=== PATIENT | female | born 1995 | race Caucasian/White ===

== ENCOUNTER → 2016-06-22 | Outpatient (CLI) | payer BC ==
[2016-06-22 12:36] LABS: CH 30.6; CHCM 34.5; HCT 37.2 % (34.0-46.0); HDW 2.67; HGB 12.7 gm/dL (11.4-16.0); MCH 30.4 pg (25.0-35.0); MCHC 34.1 g/dL (31.0-37.0); MCV 89.2 fL (80.0-100.0); Mean Platelet Volume 7.2; RBC 4.17 m/uL (3.80-5.40); RDW 12.2 % (11.5-15.5); WBC 8.8 k/uL (3.8-10.6)
[2016-06-22 12:50] LABS: Glucose 87 mg/dL (74-99); Non-African American GFR(MDRD) >60 (>60 ml/min/1.73 sqM)
[2016-06-22 13:21] LABS: Hepatitis B Surface Ag Index 0.07
[2016-06-23 04:47] LABS: Toxoplasma Antibody (IgG) <3.0 IU/mL (<7.2)
[2016-06-24 07:24] LABS: HIV-1/HIV-2 Ab Screen NONREAC (NON REAC)
== END | disposition home or self-care (01) ==
LOC: LABWHC1 12:03
PROVIDERS: ATTEND Obstetrics & Gynecology
DX: Z34.81 Encounter for supervision of other normal pregnancy, first trimester (principal); Z3A.00 Weeks of gestation of pregnancy not specified
CPT/HCPCS: 36415; 82565; 82947; 85027; 86762; 86777; 86778; 86780; 86850; 86900; 86901; 87340; 87389

== ENCOUNTER → 2016-06-30 | Outpatient (CLI) | payer BC ==
--- NOTE | 2016-06-30 10:22 | US ---
EXAMINATION TYPE: US OB <= 14 wk fetus DATE OF EXAM: 06/30/2016 9:59 AM COMPARISON: NONE CLINICAL HISTORY: Z36 CONFIRM DATES. Confirm dates, pt has no complaints at this time EXAM PERFORMED: Transabdominal (TA) EXAM MEASUREMENTS: GESTATIONAL AGE / DATING Physician Established: (9 weeks/4 days) EDC: 01/29/2017 Dates by LMP: (9 weeks/4 days) EDC: 01/29/2017 Dates by First Scan: No prior Dates by Current Scan for: (9 weeks/6 days) EDC: 01/27/2017 MATERNAL ANATOMY Uterus: 10.9 x 5.3 x 6.5 cm Right Ovary: 2.8 x 1.8 x 2.1 cm Left Ovary: 3.3 x 2.3 x 3.3 cm Post CDS / Adnexa: wnl Presence of free fluid: No Presence of corpus luteal cyst: Left Ovary= 1.8 x 1.3 x 1.6 cm Presence of subchorionic bleed: No GESTATION / SURVEY CRL: 3.0 cm (9 weeks/6 days) MSD: wnl Yolk Sac (normal less than 6mm): 3 mm Heart Rate: 174 bpm Rhythm: Normal IUP: Viable IUP IMPRESSION: Single, viable IUP/ No abnormality seen at this time
== END ==
LOC: RADUSWWP 09:49
PROVIDERS: ATTEND Obstetrics & Gynecology
DX: Z36 Encounter for antenatal screening of mother (principal)
CPT/HCPCS: 76801

== ENCOUNTER → 2016-09-06 | Outpatient (CLI) | payer BC ==
[2016-09-07 08:54] LABS: Alpha Fetoprotein 48.3 ng/mL; Alpha Fetoprotein (M.O.M) 0.97 (Negative); B-HCG (M.O.M.) 1.53; Gestational Age (days) 2; Human Chorionic Gonadotropin 30.8 IU/mL; Inhibin A (M.O.M.) 1.53; Interpretation SeeBelow; Maternal Age at EDD (Yrs) 23; Unconjugated Estriol (M.O.M.) 2.31
== END | disposition home or self-care (01) ==
LOC: LABWHC1 12:34
PROVIDERS: ATTEND Obstetrics & Gynecology
DX: Z34.82 Encounter for supervision of other normal pregnancy, second trimester (principal); Z3A.00 Weeks of gestation of pregnancy not specified
CPT/HCPCS: 36415; 82105; 82677; 84702; 86336

== ENCOUNTER → 2016-10-11 | Outpatient (CLI) | payer BC ==
[2016-10-11 11:38] LABS: CH 32.5; CHCM 35.2; HCT 30.8 % (34.0-46.0); HDW 3.15; HGB 10.6 gm/dL (11.4-16.0); MCH 32.1 pg (25.0-35.0); MCHC 34.4 g/dL (31.0-37.0); MCV 93.1 fL (80.0-100.0); Mean Platelet Volume 6.8; RBC 3.31 m/uL (3.80-5.40); RDW 13.6 % (11.5-15.5)
== END | disposition home or self-care (01) ==
LOC: LABWHC1 10:20
PROVIDERS: ATTEND Obstetrics & Gynecology
DX: Z34.82 Encounter for supervision of other normal pregnancy, second trimester (principal)
CPT/HCPCS: 36415; 82950; 85027

== ENCOUNTER → 2016-11-06 | Outpatient (CLI) | payer SELFPAY ==
[2016-11-06 12:55] LABS: Glucose 3 Hour, Gest 110 mg/dL
== END | disposition home or self-care (01) ==
LOC: LABWHC1 08:35
PROVIDERS: ATTEND Obstetrics & Gynecology
DX: O24.419 Gestational diabetes mellitus in pregnancy, unspecified control (principal); Z3A.00 Weeks of gestation of pregnancy not specified
CPT/HCPCS: 36415; 82951; 82952

== ENCOUNTER 2016-12-07 20:15 | Outpatient (CLI) | payer BC ==
[2016-12-07 20:50] LABS: Appearance,Urine Cloudy (Clear); Bacteria,Urine Occasional /hpf; Bilirubin,Urine Negative (Negative); Glucose,Urine (UA) 2+ (Negative); Ketones,Urine Negative (Negative); Leukocyte Esterase,Urine Moderate (Negative); Mucus,Urine Rare /hpf; Nitrite,Urine Negative (Negative); PH, Urine 6.5 (5.0-8.0); Particle Count 9650; Protein,Urine 1+ (Negative); RBC,Urine 3 /hpf (0-5); Specific Gravity,Urine 1.005 (1.001-1.035); Squamous Epithelial Cell,Urine 3 /hpf (0-4); UA Billing (MACRO vs. MICRO) MICRO; Urobilinogen,Urine <2.0 mg/dL (<2.0); WBC,Urine 30 /hpf (0-5)
[2016-12-07] MEDS ORDERED: ceFAZolin 2 GM in SODIUM CHLORIDE 0.9% 100 ML IVPB ONE (21:11)
[2016-12-07] MEDS ORDERED: LACTATED RINGERS 1,000 ML IV SCH (21:30)
[2016-12-07 22:24] VITALS: BP 128/72; PULSE 126; RESP 16; TEMP 97
--- NOTE | 2016-12-13 16:30 | P.MSEPDOC ---
Presenting Problems - Arrival Data Date of Arrival on Unit: 12/07/16 Time of Arrival on Unit: 20:15 Mode of Transport: Wheelchair - Complaint OB-Reason for Admission/Chief Complaint: Pain Comment: right flank pain, 11/06 Medical History - Information : 2 Para: 0 Term: 0 : 0 Abortions: Spontaneous or Elective: 0 Number of Living Children: 1 - Gestational Age Expected Date of Delivery: 01/29/17 Gestational Age by DEMETRIA (wks/days): 33 Weeks and 2 Days Review of Systems - Review of Systems Constitutional: No problems Breast: No problems ENT: No problems Cardiovascular: No problems Respiratory: No problems Gastrointestinal: No problems Genitourinary: No problems Musculoskeletal: No problems Neurological: No problems Skin: No problems Vital Signs - Temperature Temperature: 97.0 F Temperature Source: Temporal Artery Scan - Pulse Right Brachial Pulse Rate: 126 - Respirations Respiratory Rate: 16 Oxygen Delivery Method: Room Air O2 Sat by Pulse Oximetry: 99 - Blood Pressure Right Arm Blood Pressure: 128/72 Blood Pressure Mean: 90 Blood Pressure Source: Automatic Cuff Medical Screen Scoring (Pre) - Cervical Exam Dilation: 1-3 cm = 1 Membranes: Intact - Uterine Contractions Frequency: N/A Duration: N/A Intensity: N/A - Maternal Vital Signs Maternal Temperature: N/A Signs of Preeclampsia: N/A Maternal Respirations: N/A - Maternal Trauma Maternal Trauma: N/A - Assessment Baseline FHR: 140 Heart Rate - NICHD Category: Category I (Normal) = 0 NST: Reactive Position: N/A - Total Score Total Score (Pre): 1 - Level of Risk Level of Risk: Low (0-5) Physician Notification (Post) - Physician Notified Physician Notified Date: 12/07/16 Physician Notified Time: 21:15 Physician/Practitioner Notified:: Dr. Shemar Rand Order Received: Yes (see obix notes) Disposition - Disposition OB Disposition: Discharge to home, Written follow up instructions reviewed Discharge Date: 12/07/16 Discharge Time: 23:00 I agree with the RN Medical Screening Exam: Yes Risk & Benefit of care provided described in d/c instruction: Yes Diagnosis: PAIN, UNSPECIFIED
== END 2016-12-07 23:00 | disposition home or self-care (01) ==
LOC: FBPOP 20:15
PROVIDERS: ATTEND Obstetrics & Gynecology
DX: R10.31 Right lower quadrant pain (principal); Z3A.33 33 weeks gestation of pregnancy
CPT/HCPCS: 59025; 99214; 96361; 96365; 84112; 82731; 81001; 87086; J0690

== ENCOUNTER 2017-01-09 08:32 | Outpatient (CLI) | payer SELFPAY ==
[2017-01-09 09:18] VITALS: BP 123/77; PULSE 110; RESP 16; TEMP 97.5
--- NOTE | 2017-01-10 12:54 | P.MSEPDOC ---
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 treated no lesions Review of Systems - Review of Systems Constitutional: No problems Breast: No problems ENT: No problems Cardiovascular: No problems Respiratory: No problems Gastrointestinal: No problems Genitourinary: No problems Musculoskeletal: No problems Neurological: No problems Skin: No problems Vital Signs - Temperature Temperature: 97.5 F Temperature Source: Temporal Artery Scan - Pulse Pulse Oximetery Pulse Rate: 110 Pulse Assessment Method: Pulse Oximetry - Respirations Respiratory Rate: 16 Oxygen Delivery Method: Room Air - Blood Pressure Right Arm Supine Blood Pressure: 123/77 Blood Pressure Mean: 92 Blood Pressure Source: Automatic Cuff Medical Screen Scoring (Pre) - Cervical Exam Dilation: 1-3 cm = 1 Membranes: Intact - Uterine Contractions Frequency: > 5 minutes apart = 1 Duration: > 40 seconds = 2 - Maternal Vital Signs Maternal Temperature: N/A Maternal Blood Pressure: N/A Signs of Preeclampsia: N/A - Maternal Trauma Maternal Trauma: N/A - Assessment Baseline FHR: 135 Heart Rate - NICHD Category: Category I (Normal) = 0 NST: Reactive Position: N/A Station: N/A - Total Score Total Score (Pre): 4 - Level of Risk Level of Risk: Low (0-5) Physician Notification (Pre) - Physician Notified Physician Notified Date: 01/09/17 Physician Notified Time: 09:05 Physician/Practitioner Notifed:: Dr George Spoke With: Dr George New Order Received: Yes Disposition - Disposition OB Disposition: Discharge to home Transferred to:: t Discharge Date: 01/09/17 Discharge Time: 09:18 I agree with the RN Medical Screening Exam: Yes Risk & Benefit of care provided described in d/c instruction: Yes Diagnosis: FALSE LABOR AT OR AFTER 37 COMPLETED WEEKS OF GESTATION
== END 2017-01-09 09:30 | disposition home or self-care (01) ==
LOC: FBPOP 08:32
PROVIDERS: ATTEND Obstetrics & Gynecology
DX: O47.1 False labor at or after 37 completed weeks of gestation (principal); Z3A.37 37 weeks gestation of pregnancy
CPT/HCPCS: 59025; 84112; 99213

== ENCOUNTER 2017-01-25 09:50 | Inpatient (IN) | payer BC, OTHER ==
[2017-01-23 13:48] VITALS: BMI 31.8
--- NOTE | 2017-01-25 08:36 | P.HPOB ---
History of Present Illness H&P Date: 01/25/17 Chief Complaint: Macrosomia 21-year-old presents for primary low transverse due to macrosomia. Ultrasound in the office showed the baby to be over 90th percentile for weight. Review of Systems All systems: negative Constitutional: Denies chills, Denies fever Eyes: denies blurred vision, denies pain Ears, nose, mouth and throat: Denies headache, Denies sore throat Cardiovascular: Denies chest pain, Denies shortness of breath Respiratory: Denies cough Gastrointestinal: Denies abdominal pain, Denies diarrhea, Denies nausea, Denies vomiting Genitourinary: Denies dysuria, Denies hematuria Musculoskeletal: Denies myalgias Integumentary: Denies pruritus, Denies rash Neurological: Denies numbness, Denies weakness Psychiatric: Denies anxiety, Denies depression Endocrine: Denies fatigue, Denies weight change Past Medical History Past Medical History: No Reported History Additional Past Medical History / Comment(s): Obstetrics history: First was a spontaneous with a D&C. This her second and she's had good care with me since the beginning of her . A+, antibodies negative, rubella immune, treponema antibody negative, hepatitis B-, HIV nonreactive, negative quad screen, GBS negative, toxoplasmosis negative. She failed her 1 hour glucose tolerance test but a normal three-hour. History of Any Multi-Drug Resistant Organisms: None Reported Past Surgical History: Adenoidectomy, Tonsillectomy Additional Past Surgical History / Comment(s): D& C, WISDOM TEETH Past Anesthesia/Blood Transfusion Reactions: No Reported Reaction Smoking Status: Never smoker Medications and Allergies Home Medications Medication Instructions Recorded Confirmed Type Pnv No.95/Ferrous Fum/Folic AC 1 each PO DAILY 01/23/17 01/23/17 History [ Multivitamin Tablet] Allergies Allergy/AdvReac Type Severity Reaction Status Date / Time latex Allergy Mild Rash/Hives Verified 01/23/17 13:45 Exam Osteopathic Statement: *. No significant issues noted on an osteopathic structural exam other than those noted in the History and Physical/Consult. Heart: Regular rate and rhythm Lungs: Clear to auscultation bilaterally Abdomen: Soft, nontender Extremities: Negative Homans sign Assessment and Plan (1) Macrosomia affecting management of mother in third trimester Status: Acute Plan: 1. Primary low transverse
[2017-01-25] MEDS ORDERED: CITRIC ACID-SODIUM CITRATE 15 ML CUP PO ONE (10:30)
[2017-01-25] MEDS ORDERED: ceFAZolin 2 GM in SODIUM CHLORIDE 0.9% 100 ML IVPB ONE (10:30)
[2017-01-25 11:03] LABS: Basophils % (A) 0 %; CH 26.9; CHCM 31.1; Eosinophils # (A) 0.1 k/uL (0-0.7); Eosinophils % (A) 2 %; HCT 33.2 % (34.0-46.0); HDW 3.79; HGB 10.3 gm/dL (11.4-16.0); Hypochromasia Marked; Luc # (Auto) 0.18; Luc % (Auto) 2; Lymphocytes # (A) 1.4 k/uL (1.0-4.8); Lymphocytes % (A) 16 %; MCH 26.9 pg (25.0-35.0); Mean Platelet Volume 7.4; Monocytes # (A) 0.5 k/uL (0-1.0); Monocytes % (A) 5 %; Neutrophils # (A) 6.7 k/uL (1.3-7.7); Neutrophils % (A) 75 %; Poikilocytosis Slight; RBC 3.81 m/uL (3.80-5.40); RDW 15.2 % (11.5-15.5); WBC 8.9 k/uL (3.8-10.6); WBC (Perox) 9.25
[2017-01-25] MEDS: LACTATED RINGERS 1,000 ML IV SCH ×2 (11:13→20:25)
[2017-01-25] MEDS ORDERED: NALBUPHINE 10 MG/ML AMPUL ONE (12:16)
[2017-01-25] MEDS ORDERED: KETOROLAC 30 MG/ML 1 ML VIAL ONE (12:16)
[2017-01-25] MEDS ORDERED: OXYTOCIN 10 UNIT/ML 1 ML VIAL ONE (12:16)
[2017-01-25] MEDS ORDERED: MORPHINE SULFATE (PF) 0.3 MG/0.3 ML SYR ONE (12:16)
[2017-01-25] MEDS ORDERED: fentaNYL (PF) 50 MCG/ML 2 ML AMP ONE (12:16)
[2017-01-25] MEDS ORDERED: ONDANSETRON 4 MG/2 ML VIAL ONE (12:16)
[2017-01-25] MEDS ORDERED: METOCLOPRAMIDE 5 MG/ML 2 ML VIAL IVP PRN (12:59)
[2017-01-25] MEDS ORDERED: SIMETHICONE 80 MG CHEWABLE PO PRN (12:59)
[2017-01-25] MEDS ORDERED: NALOXONE 0.4 MG/ML 1 ML VIAL IV PRN ×2 (12:59→14:51)
[2017-01-25] MEDS ORDERED: ONDANSETRON 4 MG/2 ML VIAL IVP PRN (12:59)
[2017-01-25] MEDS ORDERED: Acetaminophen-Codeine 300-30mg TAB PO PRN (12:59)
[2017-01-25] MEDS ORDERED: ZOLPIDEM 5 MG TAB PO PRN (12:59)
[2017-01-25] MEDS ORDERED: LANOLIN CREAM 5 GM TUBE TOPICAL PRN (12:59)
[2017-01-25] MEDS ORDERED: diphenhydrAMINE 25 MG CAP PO PRN (12:59)
[2017-01-25] MEDS ORDERED: diphenhydrAMINE 50 MG/ML 1 ML VIAL IVP PRN ×2 (12:59)
[2017-01-25] MEDS ORDERED: ACETAMINOPHEN TAB 325 MG TAB PO PRN (12:59)
[2017-01-25] MEDS ORDERED: diphenhydrAMINE 50 MG CAP PO PRN (12:59)
[2017-01-25] MEDS ORDERED: OXYTOCIN 20 UNITS/1000 ML NS 1,000 ML IV SCH (13:00)
--- NOTE | 2017-01-25 13:03 | P.OP ---
Date of Procedure: 01/25/17 Preoperative Diagnosis: 1. at 39 weeks 3 days 2. Macrosomia Postoperative Diagnosis: 1. at 39 weeks 3 days 2. macrosomia Procedure(s) Performed: Primary low transverse Anesthesia: spinal Surgeon: Cari George Laminate Floor Installer #1: Reina Staton Estimated Blood Loss (ml): 500 IV fluids (ml): 1,000 Urine output (ml): 400 Pathology: other (placenta) Condition: stable Disposition: floor Operative Findings: viable male, 8,9, weight 9#3oz Description of Procedure: Patient was taken to the operating room where spinal anesthesia was found be adequate. She was prepped and draped in normal sterile fashion in dorsal supine position with a leftward tilt. Pfannenstiel skin incision was made the scalpel and carried through to the underlying layer of fascia with the scalpel. Fascia was incised in midline and carried bilaterally with the Hall scissors. The superior aspect of the fascial incision was grasped with Allyson clamps elevated and the underlying rectus muscles dissected off with the Hall's. Attention was then turned to inferior aspect of same incision which in a similar fashion was grasped tented up and the underlying rectus muscles dissected off with the Hall's. The rectus muscles were the midline and the peritoneum was identified tented up and entered sharply with the scalpel. The incision was extended superiorly and inferiorly with good visualization of the bladder. The bladder blade was inserted and the vesicouterine peritoneum was incised the Metzenbaums then carried bilaterally and bladder flap created digitally. A low transverse incision was then made on the uterus with the scalpel. This was carried bilaterally and digital manner. Infant's head delivered atraumatically, nose and mouth bulb suctioned, cord clamped and cut, handed off to waiting nurses. Apgars 8,9, weight 9 lbs. 3 oz. Placenta delivered manually, intact with three-vessel cord. The uterus is exteriorized and cleared of all clots and debris. The uterine incision was closed with 0 Vicryl in a running locked fashion. Second layer of the same sutures used in imbricating fashion to obtain excellent hemostasis. Bladder flap was then reapproximated using 2-0 Vicryl in a running fashion. Both ovaries and tubes appeared normal. The uterus was placed back into the abdomen. The peritoneum was reapproximated using 2-0 Vicryl in a running fashion. The muscles were reapproximated using 2-0 Vicryl in interrupted fashion. The fascia was reapproximated using 0 Vicryl in a running fashion. The subcutaneous tissues closed with 3-0 Vicryl running fashion. The skin was closed mandeep. Patient tolerated the procedure well, sponge and instrument counts were correct times 2 and she was taken to the recovery room in stable condition.
[2017-01-25] MEDS ORDERED: NALBUPHINE 10 MG/ML AMPUL IV PRN (14:51)
[2017-01-25] MEDS: KETOROLAC 30 MG/ML 1 ML VIAL IVP PRN (19:48)
[2017-01-25] MEDS: SENNOSIDES-DOCUSATE SODIUM 1 EACH TAB PO SCH (20:25)
[2017-01-26] MEDS: LACTATED RINGERS 1,000 ML IV SCH (00:12)
[2017-01-26] MEDS: KETOROLAC 30 MG/ML 1 ML VIAL IVP PRN (03:46)
[2017-01-26] MEDS: SENNOSIDES-DOCUSATE SODIUM 1 EACH TAB PO SCH ×2 (08:24→20:08)
[2017-01-26] MEDS: Acetaminophen-Codeine 300-30mg TAB PO PRN ×3 (08:25→20:07)
[2017-01-26 08:29] LABS: Anisocytosis Slight; Basophils % (A) 0 %; CH 27.6; Eosinophils # (A) 0.1 k/uL (0-0.7); Eosinophils % (A) 1 %; HCT 25.7 % (34.0-46.0); HDW 3.69; Hypochromasia Moderate; Luc # (Auto) 0.17; Luc % (Auto) 2; Lymphocytes # (A) 1.5 k/uL (1.0-4.8); Lymphocytes % (A) 20 %; MCH 27.8 pg (25.0-35.0); MCV 86.8 fL (80.0-100.0); Mean Platelet Volume 7.8; Monocytes # (A) 0.5 k/uL (0-1.0); Monocytes % (A) 6 %; Neutrophils # (A) 5.5 k/uL (1.3-7.7); Neutrophils % (A) 71 %; Poikilocytosis Slight; RBC 2.96 m/uL (3.80-5.40); WBC 7.7 k/uL (3.8-10.6); WBC (Perox) 8.41
[2017-01-26 08:32] LABS: HGB 8.2 gm/dL (11.4-16.0)
--- NOTE | 2017-01-26 09:33 | P.PNOBGPC ---
Subjective - Subjective Principal diagnosis: S/P 1*LTCS POD #1 Interval history: Pt seen and examined. Denies N/V, F/C, CP, SOB, or calf pain. Patient reports: Reports appetite normal, Reports voiding normally, Reports pain well controlled, Reports ambulating normally [place]: doing well Objective - Vital Signs Latest vital signs: Vital Signs Temp Pulse Resp BP Pulse Ox 01/26/17 04:00 98.2 F 70 18 130/70 100 01/26/17 00:00 98.2 F 93 18 124/74 100 01/25/17 20:00 97.7 F 82 18 128/89 97 01/25/17 15:04 96.9 F L 64 16 131/76 98 01/25/17 14:34 61 16 116/78 01/25/17 14:04 16 01/25/17 13:49 77 16 131/89 100 01/25/17 13:34 75 16 142/102 98 01/25/17 13:19 79 16 132/74 98 01/25/17 13:04 96.9 F L 94 16 121/70 93 L 01/25/17 10:31 96.9 F L 91 16 123/82 99 Intake and Output 01/25/17 01/26/17 01/26/17 22:59 06:59 14:59 Output Total 600 400 Balance -600 -400 Output: Urine 600 400 Uretheral (Dave) 400 - Exam Lungs: bilateral: normal Chest: Normal S1, Normal S2 Extremities: Present: normal Abdomen: Present: normal appearance, soft. Absent: distention, tenderness Incision: Present: normal, dry, intact Uterus: Present: normal, firm - Labs Labs: Abnormal Lab Results - Last 24 Hours (Table) 01/25/17 01/26/17 Range/Units 10:47 07:53 RBC 2.96 L (3.80-5.40) m/uL Hgb 10.3 L 8.2 L D (11.4-16.0) gm/dL Hct 33.2 L 25.7 L (34.0-46.0) % RDW 16.0 H (11.5-15.5) % Assessment and Plan (1) Macrosomia affecting management of mother in third trimester Current Visit: Yes Status: Resolved Code(s): O36.63X0 - MATERNAL CARE FOR EXCESS GROWTH, THIRD TRIMESTER, UNSP SNOMED Code(s): 84583667 (2) Status post primary low transverse section Narrative/Plan: 1. increase ambulation 2. po pain meds 3. reg diet Current Visit: Yes Status: Acute Code(s): Z98.891 - HISTORY OF UTERINE SCAR FROM PREVIOUS SURGERY SNOMED Code(s): 986824438
--- NOTE | 2017-01-26 12:03 | P.PN ---
Progress Note - Text 1000 Anesthesia POD 1. Patient is status post section under spinal anesthesia with intra-thecal preservative free morphine 300 g. Mild pruritus, good post-op analgesia, and no headache or other complication.
[2017-01-26] MEDS: IBUPROFEN 600 MG TAB PO PRN ×3 (12:56→23:57)
[2017-01-26] MEDS: IRON AG/C/B12/CA/SUC.ACID/STOM 1 EACH TAB PO SCH (14:52)
[2017-01-27] MEDS: SENNOSIDES-DOCUSATE SODIUM 1 EACH TAB PO SCH ×2 (00:01→07:58)
[2017-01-27] MEDS: Acetaminophen-Codeine 300-30mg TAB PO PRN ×2 (01:44→07:59)
[2017-01-27] MEDS: IBUPROFEN 600 MG TAB PO PRN ×3 (05:10→19:57)
--- NOTE | 2017-01-27 06:58 | P.PNOBGPC ---
Subjective - Subjective Patient reports: Reports appetite normal, Reports voiding normally, Reports pain well controlled, Reports ambulating normally : doing well Objective - Vital Signs Latest vital signs: Vital Signs Temp Pulse Resp BP Pulse Ox 01/27/17 00:00 97.8 F 86 15 117/79 01/26/17 16:00 98.3 F 89 18 113/68 98 01/26/17 12:00 97.5 F L 84 18 104/64 01/26/17 08:00 98 F 80 16 111/67 Intake and Output 01/26/17 01/26/17 01/27/17 14:59 22:59 06:59 Intake Total 600 Balance 600 Intake: Oral 600 Other: # Voids 1 2 - Exam Lungs: bilateral: normal Chest: Normal S1, Normal S2 Extremities: Present: normal Abdomen: Present: normal appearance, soft. Absent: distention, tenderness Incision: Present: normal, dry, intact Uterus: Present: normal, firm - Labs Labs: Abnormal Lab Results - Last 24 Hours (Table) 01/26/17 Range/Units 07:53 RBC 2.96 L (3.80-5.40) m/uL Hgb 8.2 L D (11.4-16.0) gm/dL Hct 25.7 L (34.0-46.0) % RDW 16.0 H (11.5-15.5) % Assessment and Plan (1) Status post primary low transverse section Narrative/Plan: Post operative day #2. Patient is resting without new complaints. Vital signs are stable and she is afebrile. Patient's hemoglobin yesterday was 8.2 and it appears her predelivery hemoglobin was 10.2 and therefore this appears to be chronic in nature. I did start her on iron yesterday. Patient is tolerating regular diet, urinating, ambulating without difficulty. Plan today is to continue routine postoperative care. Baby is having some difficulties and therefore we'll discharge home tomorrow. Current Visit: Yes Status: Acute Code(s): Z98.891 - HISTORY OF UTERINE SCAR FROM PREVIOUS SURGERY SNOMED Code(s): 255160199 (2) Chronic anemia Current Visit: Yes Status: Chronic Code(s): D64.9 - ANEMIA, UNSPECIFIED SNOMED Code(s): 887044846
[2017-01-27] MEDS: IRON AG/C/B12/CA/SUC.ACID/STOM 1 EACH TAB PO SCH (08:05)
[2017-01-28] MEDS: Acetaminophen-Codeine 300-30mg TAB PO PRN ×2 (00:02→03:55)
[2017-01-28] MEDS: SENNOSIDES-DOCUSATE SODIUM 1 EACH TAB PO SCH ×2 (00:04→10:39)
[2017-01-28] MEDS: IBUPROFEN 600 MG TAB PO PRN ×2 (02:19→08:00)
--- NOTE | 2017-01-28 07:15 | P.PNOBGPC ---
Subjective - Subjective Patient reports: Reports appetite normal, Reports voiding normally, Reports pain well controlled, Reports ambulating normally : doing well Objective - Vital Signs Latest vital signs: Vital Signs Temp Pulse Resp BP 01/27/17 23:52 98.4 F 99 19 145/73 01/27/17 15:37 98.2 F 90 16 129/77 01/27/17 08:00 98.2 F 89 16 126/76 Intake and Output 01/27/17 01/28/17 01/28/17 22:59 06:59 14:59 Other: # Voids 2 - Exam Lungs: bilateral: normal Chest: Normal S1, Normal S2 Extremities: Present: normal Abdomen: Present: normal appearance, soft. Absent: distention, tenderness Incision: Present: normal, dry, intact Uterus: Present: normal, firm Assessment and Plan (1) Status post primary low transverse section Narrative/Plan: Postoperative day #3. Patient is without complaints. Vital signs are stable and she is afebrile. Uterus is firm, nontender and her incision is intact and dry. My impression is a normal postoperative course. Plan is to continue routine postoperative care and discharge home later today. Current Visit: Yes Status: Acute Code(s): Z98.891 - HISTORY OF UTERINE SCAR FROM PREVIOUS SURGERY SNOMED Code(s): 999265987 (2) Chronic anemia Current Visit: Yes Status: Chronic Code(s): D64.9 - ANEMIA, UNSPECIFIED SNOMED Code(s): 980169126
--- NOTE | 2017-01-28 07:18 | P.DS ---
Providers Date of admission: 01/25/17 10:12 Expected date of discharge: 01/28/17 Attending physician: Cari George Primary care physician: Stated None - Discharge Diagnosis(es) (1) Status post primary low transverse section Current Visit: Yes Status: Acute (2) Chronic anemia Current Visit: Yes Status: Chronic Hospital Course: Please see dictated H&P per Dr. George on this patient's admission. Brief summary this is a 21-year-old 2 para 0 female 39-3/7 weeks gestation who is admitted to labor and delivery for primary section secondary to macrosomia. Patient undergoes above-named surgery and by postoperative 3 is felt be stable for discharge home follow up with Dr. George in 1 week. Procedures: Primary low transverse section Patient Condition at Discharge: Good Plan - Discharge Summary New Discharge Prescriptions: New Acetaminophen-Codeine 300-30mg [Tylenol w/codeine #3] 1 each PO Q4HR PRN #30 tab PRN Reason: Mild Pain Ibuprofen [Motrin] 600 mg PO Q6HR PRN #40 tab PRN Reason: Mild Pain Or Fever >= 100.5 Iron Ag/C/B12/Ca/Suc.acid/Stom [Chromagen LF] 1 each PO DAILY #30 tab No Action Pnv No.95/Ferrous Fum/Folic AC [ Multivitamin Tablet] 1 each PO DAILY Discharge Medication List Pnv No.95/Ferrous Fum/Folic AC [ Multivitamin Tablet] 1 each PO DAILY [History] Acetaminophen-Codeine 300-30mg [Tylenol w/codeine #3] 1 each PO Q4HR PRN #30 tab 01/28/17 [Rx] Ibuprofen [Motrin] 600 mg PO Q6HR PRN #40 tab 01/28/17 [Rx] Iron Ag/C/B12/Ca/Suc.acid/Stom [Chromagen LF] 1 each PO DAILY #30 tab 01/28/17 [ Rx] Follow up Appointment(s)/Referral(s): Cari George DO [Doctor of Osteopathic Medicine] - 1 Week Patient Instructions/Handouts: (DC) Activity/Diet/Wound Care/Special Instructions: No strenuous activity or heavy lifting for 6 weeks. No intercourse or anything per vagina for 6 weeks. Please call if any fever, chills, excessive vaginal bleeding, and/or abdominal pain. Discharge Disposition: HOME SELF-CARE
[2017-01-28] MEDS: IRON AG/C/B12/CA/SUC.ACID/STOM 1 EACH TAB PO SCH (08:20)
[2017-01-28] MEDS: LACTATED RINGERS 1,000 ML IV SCH ×2 (10:38→10:39)
[2017-01-28 10:42] VITALS: BP 132/78; PULSE 88; RESP 16; TEMP 98.2
== END 2017-01-28 08:05 | disposition home or self-care (01) | DRG 766 ==
LOC: 4FBP 10:12
PROVIDERS: ADMIT Obstetrics & Gynecology; ATTEND Obstetrics & Gynecology
PROC: 10D00Z1 Extraction of Products of Conception, Low, Open Approach (ICD-10-PCS; principal; 2017-01-25 12:00)
DX: O36.63X0 Maternal care for excessive fetal growth, third trimester, not applicable or unspecified (principal); D64.9 Anemia, unspecified; O99.02 Anemia complicating childbirth; Z37.0 Single live birth; Z3A.39 39 weeks gestation of pregnancy; L29.9 Pruritus, unspecified; T41.3X5A Adverse effect of local anesthetics, initial encounter; Z79.899 Other long term (current) drug therapy; Z91.040 Latex allergy status
CPT/HCPCS: 85025; 86850; 86900; 86901; 88307

== ENCOUNTER 2018-04-18 13:29 | Emergency (ER) | payer BC, OTHER ==
[2018-04-18 13:54] VITALS: RESP 18
--- NOTE | 2018-04-18 14:59 | ED ---
Abdominal Pain HPI - General Chief Complaint: Abdominal Pain Stated Complaint: abd pain Time Seen by Provider: 04/18/18 13:55 Source: patient Mode of arrival: ambulatory Limitations: physical limitation - History of Present Illness Initial Comments: Well appearing 22-year-old female A1 previous D&C presenting today for cc of left lower pelvic pain. She states she started her period 2 days ago and simultaneously began experiencing left lower pelvic pain, she states the pain is 7 out of 10, constant and has been worsening for the past 2 days. Patient denies any vaginal discharge, urgency frequency or dysuria. She denies any fever or chills, diarrhea, vomiting, nausea or upper abdominal pain. Patient denies any back pain, chest pain or shortness of breath. Remainder ROS negative. Upon arrival patient appears well, there are no signs of acute distress. Upon arrival patient's heart rate is mildly elevated however remainder of vital signs within acceptable limits. - Related Data Home Medications Medication Instructions Recorded Confirmed No Known Home Medications 04/18/18 04/18/18 Allergies Allergy/AdvReac Type Severity Reaction Status Date / Time latex Allergy Mild Rash/Hives Verified 04/18/18 14:39 Review of Systems ROS Statement: Those systems with pertinent positive or pertinent negative responses have been documented in the HPI. ROS Other: All systems not noted in ROS Statement are negative. Constitutional: Denies: night sweats ENT: Denies: ear pain, throat pain Respiratory: Denies: cough, dyspnea, wheezes, hemoptysis, stridor Cardiovascular: Denies: chest pain, palpitations Gastrointestinal: Reports: abdominal pain. Denies: nausea, vomiting, diarrhea, constipation, hematemesis, melena, hematochezia Genitourinary: Reports: other (vaginal bleeding-think menstruation). Denies: urgency, dysuria, frequency, hematuria, discharge Musculoskeletal: Denies: back pain Skin: Denies: rash, lesions Neurological: Denies: headache, weakness, numbness, paresthesias, confusion Past Medical History Past Medical History: No Reported History Additional Past Medical History / Comment(s): Obstetrics history: First was a spontaneous with a D&C. This her second and she's had good care with me since the beginning of her . A+, antibodies negative, rubella immune, treponema antibody negative, hepatitis B-, HIV nonreactive, negative quad screen, GBS negative, toxoplasmosis negative. She failed her 1 hour glucose tolerance test but a normal three-hour. History of Any Multi-Drug Resistant Organisms: None Reported Past Surgical History: Adenoidectomy, Tonsillectomy Additional Past Surgical History / Comment(s): D& C, WISDOM TEETH Past Anesthesia/Blood Transfusion Reactions: No Reported Reaction Past Psychological History: No Psychological Hx Reported Smoking Status: Never smoker Past Alcohol Use History: None Reported Past Drug Use History: None Reported - Past Family History Mother Additional Family Medical History / Comment(s): Alpha 1 antitripsan deficiency General Exam - General Exam Comments Initial Comments: General: The patient is awake and alert, in no distress, and does not appear acutely ill. Eye: Pupils are equal, round and reactive to light, extra-ocular movements are intact. No nystagmus. There is normal conjunctiva bilaterally. No signs of icterus. Ears, nose, mouth and throat: There are moist mucous membranes and no oral lesions. Neck: The neck is supple, there is no tenderness or JVD. Cardiovascular: There is a regular rate and rhythm. No murmur, rub or gallop is appreciated. Respiratory: Lungs are clear to auscultation, respirations are non-labored, breath sounds are equal. No wheezes, stridor, rales, or rhonchi. Gastrointestinal: No noted diaphoresis, jaundice, pallor, protecting postures or squirming. Symmetrical pigmentation of abdomen without signs of inflammation. Striae and lower pelvic horizontal scare present. Umbilicus mildline, inverted without swelling. No dilated veins. Abdomen contour obese, no noted abdominal distention. No visible masses. No peristalsis, aortic pulsations, or ventral hernia. Bowel sounds audible in all 4 quadrants, unremarkable. No friction rubs or venous hums. No epigastic, hepatic or abdominal bruits. Pain with deep palpation of the left lower pelvic region, however patient does not appear uncomfortable, no rigidity or guarding. No tenderness to light or deep palpation of the remaining abdomen, including right lower pelvic, right lower quadrant upper abdominal quadrants and regions or periumbilical region. Liver edge, not palpable. Spleen edge, right and left kidney not palpable. Superior bladder margin non-tender. Special Testing: Negative Redway, Rovsing, McBurney, Mustapha, cutaneous hyperesthesia. Iliopsoas and obturator tests negative bilaterally. Negative Heel Jar test/ charbel sign. No CVA tenderness. Digital rectal exam deferred. Negative ojeda turners or cullens sign Musculoskeletal: Normal ROM, no tenderness. Strength 5/5. Sensation intact. Pulses equal bilaterally 2+. Neurological: A&O x 3. CN II-XII intact, There are no obvious motor or sensory deficits. Coordination appears grossly intact. Speech is normal. Skin: Skin is warm and dry and no rashes or lesions are noted. Psychiatric: Cooperative, appropriate mood & affect, normal judgment. Limitations: physical limitation Course Vital Signs 04/18/18 04/18/18 13:50 16:45 Temperature 98.5 F 98.1 F Pulse Rate 103 H 82 Respiratory 18 18 Rate Blood Pressure 112/77 103/73 O2 Sat by Pulse 99 97 Oximetry Medical Decision Making - Medical Decision Making 22-year-old presenting today for chief complaint of left lower pelvic pain. Upon physical examination, patient did not appear to be in significant discomfort with palpation of the left lower pelvis upon abdominal exam. No rigidity or guarding. Urine negative, serum negative. Ultrasound revealed a complex cyst of the left ovary, with small amount of free fluid. No evidence of torsion. Pelvic exam revealed no motion tenderness, no adnexal tendernes, small amount of blood in vaginal vault. Time I do not feel patient's pelvic pain is due to left ovarian cyst rupture. With (-) testing, I do no feel this is an ectopic . Patient admitted to improvement of symptoms throughout duration of her visit. At the site of the patient is safe for discharge with [employer] follow-up. Patient is agreeable to plan. Patient is instructed take ibuprofen Tylenol for further pain management. I discussed the case in detail with Dr. Benedict who agreed the brush and plan. Patient is discharged in stable condition after discussing return parameters at length. Patient denies questions at this time - Lab Data Result diagrams: 04/18/18 14:24 04/18/18 14:24 Lab Results 04/18/18 04/18/18 04/18/18 Range/Units 14:24 14:24 14:24 WBC 8.0 (3.8-10.6) k/uL RBC 4.82 (3.80-5.40) m/uL Hgb 14.3 (11.4-16.0) gm/dL Hct 43.5 (34.0-46.0) % MCV 90.2 (80.0-100.0) fL MCH 29.7 (25.0-35.0) pg MCHC 33.0 (31.0-37.0) g/dL RDW 12.9 (11.5-15.5) % Plt Count 289 (150-450) k/uL Neutrophils % 65 % Lymphocytes % 25 % Monocytes % 6 % Eosinophils % 2 % Basophils % 0 % Neutrophils # 5.2 (1.3-7.7) k/uL Lymphocytes # 2.0 (1.0-4.8) k/uL Monocytes # 0.5 (0-1.0) k/uL Eosinophils # 0.2 (0-0.7) k/uL Basophils # 0.0 (0-0.2) k/uL Sodium 142 (137-145) mmol/L Potassium 4.1 (3.5-5.1) mmol/L Chloride 104 (98-107) mmol/L Carbon Dioxide 26 (22-30) mmol/L Anion Gap 12 mmol/L BUN 9 (7-17) mg/dL Creatinine 0.70 (0.52-1.04) mg/dL Est GFR (CKD-EPI)AfAm >90 (>60 ml/min/1.73 sqM) Est GFR (CKD-EPI)NonAf >90 (>60 ml/min/1.73 sqM) Glucose 95 (74-99) mg/dL Calcium 9.7 (8.4-10.2) mg/dL Total Bilirubin 0.4 (0.2-1.3) mg/dL AST 25 (14-36) U/L ALT 35 (9-52) U/L Alkaline Phosphatase 83 (38-126) U/L Total Protein 8.1 (6.3-8.2) g/dL Albumin 4.8 (3.5-5.0) g/dL HCG, Quant mIU/mL Urine Color Urine Appearance (Clear) Urine pH (5.0-8.0) Ur Specific Tanner (1.001-1.035) Urine Protein (Negative) Urine Glucose (UA) (Negative) Urine Ketones (Negative) Urine Blood (Negative) Urine Nitrite (Negative) Urine Bilirubin (Negative) Urine Urobilinogen (<2.0) mg/dL Ur Leukocyte Esterase (Negative) Urine RBC (0-5) /hpf Ur Squamous Epith Cells (0-4) /hpf Urine Bacteria (None) /hpf Urine HCG, Qual Not Detected (Not Detectd) Chlamydia Source Chlamydia DNA (PCR) (Neg,Equiv) N. gonorrhoeae Source N.gonorrhoeae DNA Probe (Neg,Equiv) 04/18/18 04/18/18 04/18/18 Range/Units 14:24 14:24 16:30 WBC (3.8-10.6) k/uL RBC (3.80-5.40) m/uL Hgb (11.4-16.0) gm/dL Hct (34.0-46.0) % MCV (80.0-100.0) fL MCH (25.0-35.0) pg MCHC (31.0-37.0) g/dL RDW (11.5-15.5) % Plt Count (150-450) k/uL Neutrophils % % Lymphocytes % % Monocytes % % Eosinophils % % Basophils % % Neutrophils # (1.3-7.7) k/uL Lymphocytes # (1.0-4.8) k/uL Monocytes # (0-1.0) k/uL Eosinophils # (0-0.7) k/uL Basophils # (0-0.2) k/uL Sodium (137-145) mmol/L Potassium (3.5-5.1) mmol/L Chloride (98-107) mmol/L Carbon Dioxide (22-30) mmol/L Anion Gap mmol/L BUN (7-17) mg/dL Creatinine (0.52-1.04) mg/dL Est GFR (CKD-EPI)AfAm (>60 ml/min/1.73 sqM) Est GFR (CKD-EPI)NonAf (>60 ml/min/1.73 sqM) Glucose (74-99) mg/dL Calcium (8.4-10.2) mg/dL Total Bilirubin (0.2-1.3) mg/dL AST (14-36) U/L ALT (9-52) U/L Alkaline Phosphatase (38-126) U/L Total Protein (6.3-8.2) g/dL Albumin (3.5-5.0) g/dL HCG, Quant <2.4 mIU/mL Urine Color Light Yellow Urine Appearance Clear (Clear) Urine pH 6.5 (5.0-8.0) Ur Specific Tanner 1.004 (1.001-1.035) Urine Protein Negative (Negative) Urine Glucose (UA) Negative (Negative) Urine Ketones Negative (Negative) Urine Blood Small H (Negative) Urine Nitrite Negative (Negative) Urine Bilirubin Negative (Negative) Urine Urobilinogen <2.0 (<2.0) mg/dL Ur Leukocyte Esterase Negative (Negative) Urine RBC <1 (0-5) /hpf Ur Squamous Epith Cells 1 (0-4) /hpf Urine Bacteria Rare H (None) /hpf Urine HCG, Qual (Not Detectd) Chlamydia Source Vagina Chlamydia DNA (PCR) Negative (Neg,Equiv) N. gonorrhoeae Source N.gonorrhoeae DNA Probe (Neg,Equiv) 04/18/18 Range/Units 16:30 WBC (3.8-10.6) k/uL RBC (3.80-5.40) m/uL Hgb (11.4-16.0) gm/dL Hct (34.0-46.0) % MCV (80.0-100.0) fL MCH (25.0-35.0) pg MCHC (31.0-37.0) g/dL RDW (11.5-15.5) % Plt Count (150-450) k/uL Neutrophils % % Lymphocytes % % Monocytes % % Eosinophils % % Basophils % % Neutrophils # (1.3-7.7) k/uL Lymphocytes # (1.0-4.8) k/uL Monocytes # (0-1.0) k/uL Eosinophils # (0-0.7) k/uL Basophils # (0-0.2) k/uL Sodium (137-145) mmol/L Potassium (3.5-5.1) mmol/L Chloride (98-107) mmol/L Carbon Dioxide (22-30) mmol/L Anion Gap mmol/L BUN (7-17) mg/dL Creatinine (0.52-1.04) mg/dL Est GFR (CKD-EPI)AfAm (>60 ml/min/1.73 sqM) Est GFR (CKD-EPI)NonAf (>60 ml/min/1.73 sqM) Glucose (74-99) mg/dL Calcium (8.4-10.2) mg/dL Total Bilirubin (0.2-1.3) mg/dL AST (14-36) U/L ALT (9-52) U/L Alkaline Phosphatase (38-126) U/L Total Protein (6.3-8.2) g/dL Albumin (3.5-5.0) g/dL HCG, Quant mIU/mL Urine Color Urine Appearance (Clear) Urine pH (5.0-8.0) Ur Specific Tanner (1.001-1.035) Urine Protein (Negative) Urine Glucose (UA) (Negative) Urine Ketones (Negative) Urine Blood (Negative) Urine Nitrite (Negative) Urine Bilirubin (Negative) Urine Urobilinogen (<2.0) mg/dL Ur Leukocyte Esterase (Negative) Urine RBC (0-5) /hpf Ur Squamous Epith Cells (0-4) /hpf Urine Bacteria (None) /hpf Urine HCG, Qual (Not Detectd) Chlamydia Source Chlamydia DNA (PCR) (Neg,Equiv) N. gonorrhoeae Source Vagina N.gonorrhoeae DNA Probe Negative (Neg,Equiv) Disposition Clinical Impression: Left ovarian cyst Disposition: HOME SELF-CARE Condition: Good Instructions: Ovarian Cyst (ED), Ruptured Ovarian Cyst (ED) Additional Instructions: Please use medication as discussed. Please follow-up with family doctor in the next 2 days. Please follow-up with Dr. George in next week. Please return to emergency room if the symptoms increase or worsen or for any other concerns, as discussed. Is patient prescribed a controlled substance at d/c from ED?: No Referrals: None,Stated [Primary Care Provider] - 1-2 days Cari George DO [Doctor of Osteopathic Medicine] - 1-2 days [facility] [NON-STAFF] - 1-2 days Time of Disposition: 16:35
[2018-04-18 15:04] LABS: Basophils % (A) 0 %; Eosinophils # (A) 0.2 k/uL (0-0.7); Eosinophils % (A) 2 %; HCT 43.5 % (34.0-46.0); HGB 14.3 gm/dL (11.4-16.0); Lymphocytes % (A) 25 %; MCH 29.7 pg (25.0-35.0); MCV 90.2 fL (80.0-100.0); Mean Platelet Volume 6.7; Monocytes # (A) 0.5 k/uL (0-1.0); Monocytes % (A) 6 %; Neutrophils # (A) 5.2 k/uL (1.3-7.7); Neutrophils % (A) 65 %; Platelet Count 289 k/uL (150-450); RBC 4.82 m/uL (3.80-5.40); RDW 12.9 % (11.5-15.5)
[2018-04-18 15:07] LABS: Appearance,Urine Clear (Clear); Bacteria,Urine Rare /hpf; Bilirubin,Urine Negative (Negative); Blood,Urine Small (Negative); Color,Urine Light Yellow; Glucose,Urine (UA) Negative (Negative); Ketones,Urine Negative (Negative); Leukocyte Esterase,Urine Negative (Negative); Nitrite,Urine Negative (Negative); PH, Urine 6.5 (5.0-8.0); Protein,Urine Negative (Negative); RBC,Urine <1 /hpf (0-5); Specific Gravity,Urine 1.004 (1.001-1.035); Squamous Epithelial Cell,Urine 1 /hpf (0-4); Urobilinogen,Urine <2.0 mg/dL (<2.0)
[2018-04-18 15:13] LABS: ALT 35 U/L (9-52); AST 25 U/L (14-36); Albumin 4.8 g/dL (3.5-5.0); Alkaline Phosphatase 83 U/L (38-126); Anion Gap 12 mmol/L; Blood Urea Nitrogen 9 mg/dL (7-17); Calcium 9.7 mg/dL (8.4-10.2); Carbon Dioxide 26 mmol/L (22-30); Chloride 104 mmol/L (98-107); Glucose 95 mg/dL (74-99); Potassium 4.1 mmol/L (3.5-5.1); Sodium 142 mmol/L (137-145); Total Bilirubin 0.4 mg/dL (0.2-1.3); Total Protein 8.1 g/dL (6.3-8.2)
--- NOTE | 2018-04-18 15:16 | US ---
EXAMINATION TYPE: US transvaginal DATE OF EXAM: 04/18/2018 COMPARISON: NONE CLINICAL HISTORY: Pain. Left pelvic pain x 2 days, 2, para 1, miscarriage 1 TECHNIQUE: Transvaginal ER exam. Date of LMP: 04/16/2018 EXAM MEASUREMENTS: Uterus: 7.5 x 3.5 x 4.6 cm Endometrial Stripe: 0.4 cm Right Ovary: 3.3 x 2.0 x 2.6 cm Left Ovary: 3.4 x 1.7 x 3.5 cm 1. Uterus: anteverted 2. Endometrium: wnl 3. Right Ovary: multiple follicles 4. Left Ovary: 1.2 x 0.9 x1.2cm hypoechoic area, 1.5 x 0.9 x 1.5cm cystic area, multiple follicles Spectral, color and waveform doppler imaging shows good arterial and venous flow within the ovaries ; there is no evidence for ovarian torsion. 5. Bilateral Adnexa: wnl 6. Posterior cul-de-sac: small amount of free fluid IMPRESSION: 1. There is a small amount of free fluid in the pelvis. There is a hypoechoic nodule involving the le ft ovary measuring 1.2 cm which is nonspecific. This could represent hemorrhagic cyst or endometrioma . Correlate with beta hCG to exclude possibility of ectopic . 2. There is an additional 1.5 cm simple left ovarian cyst.
[2018-04-18 16:47] VITALS: BP 103/73; PULSE 82; TEMP 98.1
[2018-04-19 14:18] LABS: C. trachomatis,PCR Negative (Neg,Equiv); Chlamydia trachomatis Source Vagina
[2018-04-19 14:21] LABS: N. gonorrhoeae,PCR Negative (Neg,Equiv); Neisseria Source Vagina
== END 2018-04-18 16:44 | disposition home or self-care (01) ==
LOC: EC 13:29
DX: N83.202 Unspecified ovarian cyst, left side (principal); Z91.040 Latex allergy status
CPT/HCPCS: 36415; 76830; 80053; 81001; 81025; 84702; 85025; 87491; 87591; 93975; 99284

== ENCOUNTER 2020-09-28 22:01 | Emergency (ER) | payer BC, OTHER ==
[2020-09-28 22:09] VITALS: BP 126/86; PULSE 92; RESP 16; TEMP 97.5
--- NOTE | 2020-09-28 22:59 | XR ---
EXAMINATION TYPE: XR knee complete RT DATE OF EXAM: 09/28/2020 COMPARISON: NONE HISTORY: Pain TECHNIQUE: 3 views FINDINGS: I see no fracture nor dislocation. Joint spaces are normal. There is no sign of joint effus ion. IMPRESSION: Negative right knee exam.
--- NOTE | 2020-09-28 23:00 | XR ---
EXAMINATION TYPE: XR foot complete RT DATE OF EXAM: 09/28/2020 COMPARISON: NONE HISTORY: Pain TECHNIQUE: 3 views FINDINGS: Metatarsals are intact. I see no fracture nor dislocation. There are no erosions. IMPRESSION: Negative left foot exam.
--- NOTE | 2020-09-29 00:28 | ED ---
Lower Extremity Injury HPI - General Chief Complaint: Extremity Injury, Lower Stated Complaint: Fall, L foot injury Time Seen by Provider: 09/29/20 00:24 Source: patient, RN notes reviewed, old records reviewed Mode of arrival: wheelchair Limitations: no limitations - History of Present Illness Initial Comments: This is a 25-year-old female who presents to the ER for evaluation of fall. Patient of fall from standing prior to arrival. Patient complaining of some right knee abrasion left knee abrasion after foot and ankle pain and tenderness, severe pain to the left lateral aspect of her left foot. Pain with weightbearing. No other traumatic injury noted. Patient is no medical history takes no medications no drugs or alcohol MD Complaint: knee injury, ankle injury, foot injury -: hour(s) Injury: Knee: Right, Left, Foot: Left Type of Injury: blunt Place: home Severity: mild Severity scale (1-10): 3 Improves With: nothing Worsens With: weight bearing Context: fall, direct blow, running Other Symptoms: other (none) Associated Symptoms: able to partially bear weight Treatments Prior to Arrival: bandage, NSAIDS - Related Data Home Medications Medication Instructions Recorded Confirmed No Known Home Medications 04/18/18 04/18/18 Allergies Allergy/AdvReac Type Severity Reaction Status Date / Time latex Allergy Mild Rash/Hives Verified 09/28/20 22:07 Review of Systems ROS Statement: Those systems with pertinent positive or pertinent negative responses have been documented in the HPI. ROS Other: All systems not noted in ROS Statement are negative. Past Medical History Past Medical History: No Reported History Additional Past Medical History / Comment(s): Obstetrics history: First was a spontaneous with a D&C. This her second and she's had good care with me since the beginning of her . A+, antibodies negative, rubella immune, treponema antibody negative, hepatitis B-, HIV nonreactive, negative quad screen, GBS negative, toxoplasmosis negative. She failed her 1 hour glucose tolerance test but a normal three-hour. History of Any Multi-Drug Resistant Organisms: None Reported Past Surgical History: Adenoidectomy, Tonsillectomy Additional Past Surgical History / Comment(s): D& C, WISDOM TEETH Past Anesthesia/Blood Transfusion Reactions: No Reported Reaction Past Psychological History: No Psychological Hx Reported Smoking Status: Never smoker Past Alcohol Use History: None Reported Past Drug Use History: None Reported - Past Family History Mother Additional Family Medical History / Comment(s): Alpha 1 antitripsan deficiency General Exam Limitations: no limitations General appearance: alert, in no apparent distress Head exam: Present: atraumatic, normocephalic, normal inspection Eye exam: Present: normal appearance, PERRL, EOMI. Absent: scleral icterus, conjunctival injection, periorbital swelling ENT exam: Present: normal exam, mucous membranes moist Neck exam: Present: normal inspection. Absent: tenderness, meningismus, lymphadenopathy Respiratory exam: Present: normal lung sounds bilaterally. Absent: respiratory distress, wheezes, rales, rhonchi, stridor Cardiovascular Exam: Present: regular rate, normal rhythm, normal heart sounds. Absent: systolic murmur, diastolic murmur, rubs, gallop, clicks GI/Abdominal exam: Present: soft, normal bowel sounds. Absent: distended, tenderness, guarding, rebound, rigid Extremities exam: Present: normal inspection, full ROM, normal capillary refill, other (Left knee right knee abrasion, left ankle and fifth metatarsal pain and tenderness). Absent: tenderness, pedal edema, joint swelling, calf tenderness Back exam: Present: normal inspection Neurological exam: Present: alert, oriented X3, CN II-XII intact Psychiatric exam: Present: normal affect, normal mood Skin exam: Present: warm, dry, intact, normal color. Absent: rash Course Vital Signs 09/28/20 22:05 Temperature 97.5 F L Pulse Rate 92 Respiratory 16 Rate Blood Pressure 126/86 O2 Sat by Pulse 100 Oximetry - Reevaluation(s) Reevaluation #1: 09/29/20 00:36 Medical record is reviewed Reevaluation #2: 09/29/20 00:36 Patient is improved symptoms Reevaluation #3: 09/29/20 00:36 Patient informed results and questions answered Reevaluation #4: 09/29/20 00:36 Dermabond for abrasion Medical Decision Making - Medical Decision Making 25 female fall with left ankle and foot pain. Right knee abrasion and pain. No bleeding no significant laceration, abrasion, patient can be discharged home - Radiology Data Radiology results: report reviewed (X-ray left foot x-ray left ankle negative for traumatic injury), image reviewed Disposition Clinical Impression: Abrasion of knee, bilateral, Abrasion of left knee, Abrasion of right knee, Fall Disposition: HOME SELF-CARE Condition: Good Instructions (If sedation given, give patient instructions): Ankle Sprain (ED), Foot Contusion (ED) Is patient prescribed a controlled substance at d/c from ED?: No Referrals: None,Stated [Primary Care Provider] - 1-2 days
[2020-09-29] MEDS ORDERED: TOPICAL SKIN ADHESIVE 1 EACH AMP TOPICAL STA (00:29)
== END 2020-09-29 01:11 | disposition home or self-care (01) ==
LOC: EC 22:01
DX: S80.212A Abrasion, left knee, initial encounter (principal); S80.211A Abrasion, right knee, initial encounter; Z90.09 Acquired absence of other part of head and neck; W18.30XA Fall on same level, unspecified, initial encounter
CPT/HCPCS: 99283

== ENCOUNTER 2024-05-28 16:40 | Emergency (ER) | payer OTHER ==
--- NOTE | 2024-05-28 16:57 | ED ---
General Adult HPI - General Chief complaint: Vaginal Bleeding Stated complaint: preg and spotting Time Seen by Provider: 05/28/24 16:55 Source: patient, RN notes reviewed Mode of arrival: ambulatory Limitations: no limitations - History of Present Illness Initial comments: This is a 28-year-old female, [id number], presenting to the emergency department for complaint of vaginal bleeding. Patient states that on Sunday she began to experience light brown vaginal bleeding and today began to experience bright red vaginal bleeding. She denies passage of clots, dizziness, lightheadedness. She denies abdominal pain. Last menstrual cycle 04/29/2024. Denies urinary bowel habit complaints - Related Data Home Medications Medication Instructions Recorded Confirmed No Known Home Medications 04/18/18 04/18/18 Allergies Allergy/AdvReac Type Severity Reaction Status Date / Time latex Allergy Mild Rash/Hives Verified 05/28/24 16:48 Review of Systems ROS Statement: Those systems with pertinent positive or pertinent negative responses have been documented in the HPI. ROS Other: All systems not noted in ROS Statement are negative. Past Medical History Past Medical History: No Reported History Additional Past Medical History / Comment(s): Obstetrics history: First was a spontaneous with a D&C. This her second and she's had good care with me since the beginning of her . A+, antibodies negative, rubella immune, treponema antibody negative, hepatitis B-, HIV nonreactive, negative quad screen, GBS negative, toxoplasmosis negative. She failed her 1 hour glucose tolerance test but a normal three-hour. History of Any Multi-Drug Resistant Organisms: None Reported Past Surgical History: Adenoidectomy, Tonsillectomy Additional Past Surgical History / Comment(s): D& C, WISDOM TEETH Past Anesthesia/Blood Transfusion Reactions: No Reported Reaction Past Psychological History: No Psychological Hx Reported Smoking Status: Never smoker Past Alcohol Use History: None Reported Past Drug Use History: None Reported - Past Family History Mother Additional Family Medical History / Comment(s): Alpha 1 antitripsan deficiency General Exam - General Exam Comments Initial Comments: Visual Physical Exam Vital signs reviewed General: Well-appearing, nontoxic, no acute distress. Head: Normocephalic, atraumatic Eyes: PERRLA, EOMI ENT: Airway patent Chest: Nonlabored breathing Skin: No visual rash, normal skin tone Neuro: Alert and oriented 3 Musculoskeletal: No gross abnormalities Limitations: no limitations Neck exam: Present: normal inspection. Absent: tenderness, meningismus, lymphadenopathy Respiratory exam: Present: normal lung sounds bilaterally. Absent: respiratory distress, wheezes, rales, rhonchi, stridor Cardiovascular Exam: Present: regular rate, normal rhythm, normal heart sounds. Absent: systolic murmur, diastolic murmur, rubs, gallop, clicks GI/Abdominal exam: Present: soft, normal bowel sounds. Absent: distended, tenderness, guarding, rebound, rigid Extremities exam: Present: normal inspection, full ROM, normal capillary refill. Absent: tenderness, pedal edema, joint swelling, calf tenderness Back exam: Present: normal inspection Course Vital Signs 05/28/24 05/28/24 16:42 18:53 Temperature 98.1 F 97.9 F Pulse Rate 92 87 Respiratory 16 18 Rate Blood Pressure 131/82 122/79 O2 Sat by Pulse 100 97 Oximetry Medical Decision Making - Medical Decision Making Was pt. sent in by a medical professional or institution (Dr. PA, LIBRARIAN HELPER, urgent care, hospital, or senior living...) When possible be specific @ -No Did you speak to anyone other than the patient for history (EMS, parent, family, police, friend...)? What history was obtained from this source @ -No Did you review nursing and triage notes (agree or disagree)? Why? @ -I reviewed and agree with nursing and triage notes Were old charts reviewed (outside hosp., previous admission, EMS record, old EKG, old radiological studies, urgent care reports/EKG's, senior living records)? Report findings @ -No old charts were reviewed Differential Diagnosis (chest pain, altered mental status, abdominal pain women, abdominal pain men, vaginal bleeding, weakness, fever, dyspnea, syncope, headache, dizziness, GI bleed, back pain, seizure, CVA, palpatations, mental health, musculoskeletal)? @ -Differential Vaginal Bleeding: Spontaneous , threatened , molar , ectopic , bloody show, incompetent cervix, abruptioplacenta, placenta previa, uterine rupture, dysfunctional uterine bleeding, hemorrhage, uterine fibroids, this is not meant to be an all-inclusive list. EKG interpreted by me (3pts min.). @ -none X-rays interpreted by me (1pt min.). @ -None done CT interpreted by me (1pt min.). @ -None done U/S interpreted by me (1pt. min.). @ -pelvic ultrasound completed with no evidence of intrauterine gestational sac, possibility of early , ectopic or spontaneous , recommend follow-up ultrasound in 1 week and serial hCG What testing was considered but not performed or refused? (CT, X-rays, U/S, labs )? Why? @ -None What meds were considered but not given or refused? Why? @ -None Did you discuss the management of the patient with other professionals (professionals i.e. , PA, LIBRARIAN HELPER, lab, RT, psych nurse, social media marketing manager, rental boats caretaker, teacher, cavalry officer, case resolution specialist)? Give summary @ -No Was smoking cessation discussed for >3mins.? @ -No Was critical care preformed (if so, how long)? @ -No Were there social determinants of health that impacted care today? How? (Homelessness, low income, unemployed, alcoholism, drug addiction, transportation, low edu. Level, literacy, decrease access to med. care, fpc, rehab)? @ -No Was there de-escalation of care discussed even if they declined (Discuss DNR or withdrawal of care, Hospice)? DNR status @ -No What co-morbidities impacted this encounter? (DM, HTN, Smoking, COPD, CAD, Cancer, CVA, ARF, Chemo, Hep., AIDS, mental health diagnosis, sleep apnea, morbid obesity)? @ -None Was patient admitted / discharged? Hospital course, mention meds given and route, prescriptions, significant lab abnormalities, going to OR and other pertinent info. @ -Discharge. 28-year-old female presenting with vaginal bleeding during . Evaluation the patient testing with no signs symptoms. Abdominal examination is unremarkable. Patient's hCG quantitative level 155.4. Urinalysis is unremarkable. Ultrasound no evidence of intrauterine gestational sac with possibility for early or ectopic . Patient is provided with prescription for repeat hCG testing in 48 hours and recommended to repeat ultrasound in 5 to 7 days for further evaluation. All questions have been answered at bedside strict return parameters as per the patient she is verbalized understanding. Case discussed with Dr. Navarro Undiagnosed new problem with uncertain prognosis? @ -No Drug Therapy requiring intensive monitoring for toxicity (Heparin, Nitro, Insulin, Cardizem)? @ -No Were any procedures done? @ -No Diagnosis/symptom? @ -Threatened miscarriage Acute, or Chronic, or Acute on Chronic? @ -acute Uncomplicated (without systemic symptoms) or Complicated (systemic symptoms)? @ -uncomplicated Side effects of treatment? @ -No Exacerbation, Progression, or Severe Exacerbation? @ -No Poses a threat to life or bodily function? How? (Chest pain, USA, VT, pneumonia, PE, COPD, DKA, ARF, appy, cholecystitis, CVA, Diverticulitis, Homicidal, Suicidal, threat to staff... and all critical care pts) @ -No - Lab Data Result diagrams: 05/28/24 17:22 05/28/24 17:22 Lab Results 05/28/24 05/28/24 05/28/24 Range/Units 17:00 17:22 17:22 WBC 6.2 (3.8-10.6) k/uL RBC 4.07 (3.80-5.40) m/uL Hgb 12.4 (11.4-16.0) gm/dL Hct 37.2 (34.0-46.0) % MCV 91.3 (80.0-100.0) fL MCH 30.4 (25.0-35.0) pg MCHC 33.3 (31.0-37.0) g/dL RDW 12.3 (11.5-15.5) % Plt Count 273 (150-450) k/uL MPV 7.2 Neutrophils % 53 % Lymphocytes % 37 % Monocytes % 4 % Eosinophils % 2 % Basophils % 1 % Neutrophils # 3.3 (1.3-7.7) k/uL Lymphocytes # 2.3 (1.0-4.8) k/uL Monocytes # 0.3 (0-1.0) k/uL Eosinophils # 0.1 (0-0.7) k/uL Basophils # 0.0 (0-0.2) k/uL Sodium 137 (137-145) mmol/L Potassium 4.1 (3.5-5.1) mmol/L Chloride 100 (98-107) mmol/L Carbon Dioxide 28 (22-30) mmol/L Anion Gap 9 mmol/L BUN 9 (7-17) mg/dL Creatinine 0.72 (0.52-1.04) mg/dL Est GFR (CKD-EPI)AfAm >90 (>60 ml/min/1.73 sqM) Est GFR (CKD-EPI)NonAf >90 (>60 ml/min/1.73 sqM) Glucose 94 (74-99) mg/dL Calcium 9.6 (8.4-10.2) mg/dL Total Bilirubin 0.3 (0.2-1.3) mg/dL AST 49 H (14-36) U/L ALT 60 H (4-34) U/L Alkaline Phosphatase 59 (38-126) U/L Total Protein 7.4 (6.3-8.2) g/dL Albumin 4.7 (3.5-5.0) g/dL HCG, Quant 155.4 mIU/mL Urine Color Yellow Urine Appearance Cloudy H (Clear) Urine pH 6.5 (5.0-8.0) Ur Specific [place] 1.025 (1.001-1.035) Urine Protein Negative (Negative) Urine Glucose (UA) Negative (Negative) Urine Ketones Negative (Negative) Urine Blood Trace H (Negative) Urine Nitrite Negative (Negative) Urine Bilirubin Negative (Negative) Urine Urobilinogen <2.0 (<2.0) mg/dL Ur Leukocyte Esterase Negative (Negative) Urine RBC 3 (0-5) /hpf Urine WBC 3 (0-5) /hpf Ur Squamous Epith Cells 1 (0-4) /hpf Urine Bacteria Rare H (None) /hpf Urine Mucus Few H (None) /hpf Blood Type Blood Type Recheck Bld Type Recheck Status 05/28/24 Range/Units 18:17 WBC (3.8-10.6) k/uL RBC (3.80-5.40) m/uL Hgb (11.4-16.0) gm/dL Hct (34.0-46.0) % MCV (80.0-100.0) fL MCH (25.0-35.0) pg MCHC (31.0-37.0) g/dL RDW (11.5-15.5) % Plt Count (150-450) k/uL MPV Neutrophils % % Lymphocytes % % Monocytes % % Eosinophils % % Basophils % % Neutrophils # (1.3-7.7) k/uL Lymphocytes # (1.0-4.8) k/uL Monocytes # (0-1.0) k/uL Eosinophils # (0-0.7) k/uL Basophils # (0-0.2) k/uL Sodium (137-145) mmol/L Potassium (3.5-5.1) mmol/L Chloride (98-107) mmol/L Carbon Dioxide (22-30) mmol/L Anion Gap mmol/L BUN (7-17) mg/dL Creatinine (0.52-1.04) mg/dL Est GFR (CKD-EPI)AfAm (>60 ml/min/1.73 sqM) Est GFR (CKD-EPI)NonAf (>60 ml/min/1.73 sqM) Glucose (74-99) mg/dL Calcium (8.4-10.2) mg/dL Total Bilirubin (0.2-1.3) mg/dL AST (14-36) U/L ALT (4-34) U/L Alkaline Phosphatase (38-126) U/L Total Protein (6.3-8.2) g/dL Albumin (3.5-5.0) g/dL HCG, Quant mIU/mL Urine Color Urine Appearance (Clear) Urine pH (5.0-8.0) Ur Specific [place] (1.001-1.035) Urine Protein (Negative) Urine Glucose (UA) (Negative) Urine Ketones (Negative) Urine Blood (Negative) Urine Nitrite (Negative) Urine Bilirubin (Negative) Urine Urobilinogen (<2.0) mg/dL Ur Leukocyte Esterase (Negative) Urine RBC (0-5) /hpf Urine WBC (0-5) /hpf Ur Squamous Epith Cells (0-4) /hpf Urine Bacteria (None) /hpf Urine Mucus (None) /hpf Blood Type A Positive Blood Type Recheck A Pos Bld Type Recheck Status No Disposition Clinical Impression: Threatened Disposition: HOME SELF-CARE Condition: Good Instructions (If sedation given, give patient instructions): Threatened Miscarriage (ED) Additional Instructions: Please return to the Emergency Department if symptoms worsen or any other concerns. Return for hCG testing in 48 hours and repeat ultrasound in 5 to 7 days for further evaluation. Is patient prescribed a controlled substance at d/c from ED?: No Referrals: None,Stated [Primary Care Provider] - 1-2 days Time of Disposition: 18:38
[2024-05-28 17:30] LABS: Appearance,Urine Cloudy (Clear); Bacteria,Urine Rare /hpf; Bilirubin,Urine Negative (Negative); Blood,Urine Trace (Negative); Color,Urine Yellow; Glucose,Urine (UA) Negative (Negative); Ketones,Urine Negative (Negative); Leukocyte Esterase,Urine Negative (Negative); Mucus,Urine Few /hpf; Nitrite,Urine Negative (Negative); PH, Urine 6.5 (5.0-8.0); Protein,Urine Negative (Negative); RBC,Urine 3 /hpf (0-5); Specific Gravity,Urine 1.025 (1.001-1.035); Squamous Epithelial Cell,Urine 1 /hpf (0-4); Urobilinogen,Urine <2.0 mg/dL (<2.0); WBC,Urine 3 /hpf (0-5)
[2024-05-28 17:35] LABS: Basophils % (A) 1 %; Eosinophils # (A) 0.1 k/uL (0-0.7); Eosinophils % (A) 2 %; HCT 37.2 % (34.0-46.0); HGB 12.4 gm/dL (11.4-16.0); Lymphocytes # (A) 2.3 k/uL (1.0-4.8); Lymphocytes % (A) 37 %; MCH 30.4 pg (25.0-35.0); MCHC 33.3 g/dL (31.0-37.0); MCV 91.3 fL (80.0-100.0); Mean Platelet Volume 7.2; Monocytes # (A) 0.3 k/uL (0-1.0); Monocytes % (A) 4 %; Neutrophils # (A) 3.3 k/uL (1.3-7.7); Neutrophils % (A) 53 %; Platelet Count 273 k/uL (150-450); RBC 4.07 m/uL (3.80-5.40); RDW 12.3 % (11.5-15.5); WBC 6.2 k/uL (3.8-10.6)
[2024-05-28 17:49] LABS: ALT 60 U/L (4-34); AST 49 U/L (14-36); African American GFR (CKD) >90 (>60 ml/min/1.73 sqM); Albumin 4.7 g/dL (3.5-5.0); Alkaline Phosphatase 59 U/L (38-126); Anion Gap 9 mmol/L; Blood Urea Nitrogen 9 mg/dL (7-17); Calcium 9.6 mg/dL (8.4-10.2); Carbon Dioxide 28 mmol/L (22-30); Chloride 100 mmol/L (98-107); Glucose 94 mg/dL (74-99); Non-African American GFR(CKD) >90 (>60 ml/min/1.73 sqM); Potassium 4.1 mmol/L (3.5-5.1); Sodium 137 mmol/L (137-145); Total Bilirubin 0.3 mg/dL (0.2-1.3); Total Protein 7.4 g/dL (6.3-8.2)
[2024-05-28 18:06] LABS: HCG,Quantitative Serum 155.4 mIU/mL
--- NOTE | 2024-05-28 18:23 | US ---
EXAMINATION TYPE: Transabdominal DATE OF EXAM: 05/28/2024 6:09 PM COMPARISON: NONE for this CLINICAL INDICATION: Female, 28 years old with history of 5 weeks, bleeding; Patient states 5 weeks p regnant, spotting TECHNIQUE: Transabdominal (TA) with grayscale and color Doppler imaging including first trimester pre gnancy. FINDINGS: EXAM MEASUREMENTS: GESTATIONAL AGE / DATING Physician Established: Not yet established Dates by LMP: (5 weeks/4 days) EDC: 01/24/2025 Dates by First Scan: No previous this is first scan Dates by Current Scan for: Unable to date by today's study MATERNAL ANATOMY Uterus: 7.9 x 3.6 x 4.5cm. The endometrium is echogenic and measures 1.4cm. There is a 0.6 x 0.6 x 0. 6cm anechoic area seen within the MARIO ALBERTO/ CX, ? nabothian cyst Right Ovary: 2.1 x 1.9 x 2.5cm Left Ovary: 2.7 x 2.2 x 2.7cm. There is a 1.5 x 1.2 x 1.6cm complex area seen within with peripheral vascularity Compatible with corpus luteum. Post CDS / Adnexa: wnl as best seen Presence of free fluid: not seen Presence of corpus luteal cyst: ? complex area within the left ovary vs other Presence of subchorionic bleed: not seen GESTATION / SURVEY CRL: not seen Gestational Sac MSD: not seen Yolk Sac (normal less than 6mm): not seen IUP: No IUP seen at this time Date of LMP: 04/19/2024 Beta HcG (if available): 155.4 IMPRESSION: No evidence of intrauterine gestational sac in this patient with a positive B-hCG. This can be seen i n early , ectopic and spontaneous . Follow up pelvic ultrasound in 5-7 day s and serial beta hCG studies are recommended. [facility], , 05/28/2024 6:20 PM
[2024-05-28 18:56] VITALS: BP 122/79; PULSE 87; RESP 18; TEMP 97.9
== END 2024-05-28 19:00 | disposition home or self-care (01) ==
LOC: EC 16:40
DX: O20.0 Threatened abortion (principal); Z91.040 Latex allergy status; Z3A.01 Less than 8 weeks gestation of pregnancy
CPT/HCPCS: 36415; 76801; 80053; 81001; 84702; 85025; 86900; 86901; 99284

== ENCOUNTER → 2024-07-30 | Outpatient (CLI) | payer OTHER | END | disposition home or self-care (01) | LOC: LABWHC1 15:17 | PROVIDERS: ATTEND Obstetrics & Gynecology | DX: Z34.81 Encounter for supervision of other normal pregnancy, first trimester (principal) | CPT/HCPCS: 36415; 84702 ==

== ENCOUNTER → 2024-08-01 | Outpatient (CLI) | payer OTHER | END | disposition home or self-care (01) | LOC: LABWHC1 14:35 | PROVIDERS: ATTEND Obstetrics & Gynecology | DX: Z34.81 Encounter for supervision of other normal pregnancy, first trimester (principal) | CPT/HCPCS: 36415; 84702 ==

== ENCOUNTER 2024-11-06 11:05 | Outpatient (CLI) | payer OTHER ==
[2024-11-06 11:47] LABS: Bacteria,Urine Many /hpf; Bilirubin,Urine Negative (Negative); Blood,Urine Negative (Negative); Color,Urine Yellow; Glucose,Urine (UA) Negative (Negative); Ketones,Urine Negative (Negative); Leukocyte Esterase,Urine Moderate (Negative); Mucus,Urine Many /hpf; Nitrite,Urine Negative (Negative); PH, Urine 7.0 (5.0-8.0); Protein,Urine Trace (Negative); RBC,Urine 3 /hpf (0-5); Specific Gravity,Urine 1.022 (1.001-1.035); Squamous Epithelial Cell,Urine 11 /hpf (0-4); Urobilinogen,Urine <2.0 mg/dL (<2.0); WBC,Urine 19 /hpf (0-5)
[2024-11-06 11:48] VITALS: BP 120/68; PULSE 93; RESP 16; TEMP 97.5
--- NOTE | 2024-11-23 09:25 | P.MSEPDOC ---
Presenting Problems - Arrival Data Date of Arrival on Unit: 11/06/24 Time of Arrival on Unit: 11:05 Mode of Transport: Ambulatory - Complaint OB-Reason for Admission/Chief Complaint: Rule Out PROM Comment: possible ROM vs leaking urine Medical History - Information : 4 Para: 1 Term: 1 : 0 Abortions: Spontaneous or Elective: 2 Number of Living Children: 1 - Gestational Age Gestational Age by DEMETRIA (wks/days): 22 Weeks and 6 Days - History Complications: Prior Review of Systems - Review of Systems Constitutional: No problems Breast: No problems ENT: No problems Cardiovascular: No problems Respiratory: No problems Gastrointestinal: No problems Genitourinary: No problems Musculoskeletal: No problems Neurological: No problems Skin: No problems Vital Signs - Temperature Temperature: 97.5 F Temperature Source: Temporal Artery Scan - Pulse Right Sitting Pulse Rate: 93 Pulse Assessment Method: Automatic Cuff - Respirations Respiratory Rate: 16 Oxygen Delivery Method: Room Air O2 Sat by Pulse Oximetry: 98 - Blood Pressure Right Arm Blood Pressure: 120/68 Blood Pressure Mean: 85 Blood Pressure Source: Automatic Cuff Physician Notification - Physician Notified Physician Notified Date: 11/06/24 Physician Notified Time: 11:53 Physician: Zac Monterroso Order Received: Yes (culture urine and d/c) Maternal Triage Index - Non-Urgent/Priority 4 Non-Urgent Priority 4: Yes Criteria Met for Priority 4: negative amnisure, urine sent for culture, no contractions, pain or other complaints, fht dopplered Disposition - Disposition OB Disposition: Triage, Discharge to home Discharge Date: 11/06/24 Discharge Time: 12:01 I agree with the RN Medical Screening Exam: Yes Physician's MSE Comment: I have neither seen nor examined the patient. Case reviewed; plan agreed upon as documented in EMR&OBIX.: Yes Diagnosis: RELATED CONDITIONS, UNSPECIFIED, SECOND TRIMESTER
== END 2024-11-06 12:01 | disposition home or self-care (01) ==
LOC: FBPOP 11:05
PROVIDERS: ATTEND Obstetrics & Gynecology
DX: O26.892 Other specified pregnancy related conditions, second trimester (principal); Z3A.22 22 weeks gestation of pregnancy; Z91.040 Latex allergy status
CPT/HCPCS: 81001; 84112; 87086; 99213